=== PATIENT | female | born 1925 | race Caucasian/White ===

== ENCOUNTER 2017-08-17 10:24 | Emergency (ER) | payer MEDICARE, BC ==
[2017-08-17 12:06] LABS: Urine Bacteria Absent (Absent); Urine Bilirubin Negative (Negative); Urine Glucose Negative (Negative); Urine Nitrite Negative (Negative)
[2017-08-17 12:06] LABS: Hematocrit 37 % (35-47); Hemoglobin 12.6 g/dl (12.0-16.0); Mean Corpuscular HGB Conc 34 g/dl (31-36); Mean Corpuscular Hemoglobin 31 pg (27-31); Mean Corpuscular Volume 90 fL (80-97); Mean Platelet Volume 7 um3 (7.4-10.4); Red Blood Count 4.13 10^6/ul (4.0-5.4); Red Cell Distribution Width 13 % (10.5-15); White Blood Count 10.3 10^3/ul (3.5-10.8)
--- NOTE | 2017-08-17 12:07 | RAD ---
HISTORY: Weakness COMPARISONS: February 11, 2014 TECHNIQUE: Multiple contiguous axial CT scans were obtained of the head without intravenous contrast. FINDINGS: HEMORRHAGE/INFARCT: There is no hemorrhage or acute infarct. MASSES/SHIFT: There is no mass or shift. EXTRA-AXIAL SPACES: There are no extra-axial fluid collections. SULCI AND VENTRICLES: The sulci and ventricles are normal in size and position for the patient's stated age. CEREBRUM: There is hypoattenuation of the periventricular and subcortical white matter. BRAINSTEM: There are no focal parenchymal abnormalities. CEREBELLUM: There are no focal parenchymal abnormalities. VESSELS: The vessels are grossly normal. PARANASAL SINUSES: The paranasal sinuses are clear. ORBITS: The orbits are unremarkable. BONES AND SOFT TISSUE: No bone or soft tissue abnormalities are noted. OTHER: None IMPRESSION: NO ACUTE INTRACRANIAL PATHOLOGY. CHRONIC SMALL VESSEL ISCHEMIC CHANGES.
--- NOTE | 2017-08-17 12:18 | RAD ---
HISTORY: Weakness COMPARISONS: February 11, 2014 VIEWS: 4: Frontal dual-energy and lateral views of the chest. FINDINGS: CARDIOMEDIASTINAL SILHOUETTE: The cardiomediastinal silhouette is normal. NICOLE: The nicole are normal. PLEURA: The costophrenic angles are sharp. No pleural abnormalities are noted. LUNG PARENCHYMA: The lungs are clear. ABDOMEN: The upper abdomen is clear. There is no subphrenic gas. BONES AND SOFT TISSUES: No bone or soft tissue abnormalities are noted. OTHER: None. IMPRESSION: NO ACTIVE CARDIOPULMONARY DISEASE.
[2017-08-17 12:23] LABS: Albumin 3.4 g/dL (3.2-5.2); BUN/Creatinine Ratio 22.4 (8-20); Calcium 9.2 mg/dL (8.6-10.3); Globulin 3.3 g/dL (2-4); HDL Cholesterol 40.8 mg/dL; Potassium 3.9 mmol/L (3.5-5.0); Total Bilirubin 0.4 mg/dL (0.2-1.0); Total Protein 6.7 g/dL (6.4-8.9)
--- NOTE | 2017-08-17 15:23 | RAD ---
HISTORY: Weakness, double vision, dizziness COMPARISONS: Head CT dated August 17, 2017, MRI dated March 23 2007 TECHNIQUE: The following sequences were obtained of the head: Sagittal T1-weighted images, axial T2-weighted images, axial FLAIR images, axial susceptibility weighted images, axial T1-weighted images. Additionally, axial diffusion-weighted images were obtained with calculated apparent diffusion coefficients. FINDINGS: The study is limited by patient motion artifact. HEMORRHAGE/INFARCT: There is no hemorrhage or acute infarct. MASSES/SHIFT: There is no mass or shift. EXTRA-AXIAL SPACES/MENINGES: There are no extra-axial fluid collections. SULCI AND VENTRICLES: There is diffuse and proportional enlargement of the sulci and ventricles. CEREBRUM: There are multiple scattered and confluent foci of elevated T2/FLAIR signal within the periventricular and subcortical white matter. This is progressed compared to 2006. BRAINSTEM: There are no focal parenchymal abnormalities. CEREBELLUM: There are no focal parenchymal abnormalities. The cerebellar tonsils are normal in size and position. SELLA: The sella is normal. PINEAL: The pineal region is clear. CP ANGLE/TEMPORAL BONES: The labyrinthine structures are grossly normal. VESSELS: Normal flow-voids are noted within the visualized vertebral vasculature. DIFFUSION ABNORMALITIES: There are no diffusion abnormalities. PARANASAL SINUSES/MASTOIDS: The paranasal sinuses are clear. ORBITS: The orbits are unremarkable. BONES AND SOFT TISSUE: No bone or soft tissue abnormalities are noted. OTHER: None IMPRESSION: DIFFUSE INVOLUTIONAL CHANGE WITH DIFFUSELY ELEVATED T2/FLAIR SIGNAL IN THE PERIVENTRICULAR AND SUBCORTICAL WHITE MATTER, NONSPECIFIC, BUT SUGGESTIVE OF CHRONIC SMALL VESSEL ISCHEMIC CHANGE.
[2017-08-17 16:05] VITALS: BP 152/59
--- NOTE | 2017-08-18 08:41 | ED ---
Zen Clay Angela, scribed for Loc Dubon MD on 08/17/17 at 1135 . Neurological HPI - HPI Summary HPI Summary: This pt is a 89 y/o female accompanied by daughter and son presenting to [facility] c /o diplopia and numbness and tingling in left hand that began yesterday. Daughter reports about 10 days ago, the pt had a cold virus and within 1-2 days she got conjunctivitis on right eye. Pt was prescribed erythomycin ointment and it has now resolved. Pt presents to the ED now with diplopia, numbness/tingling in left hand, and unsteady gait since yesterday. Daughter notes the pt reported to her that she had "passed out" at home this morning, unwitnessed. There are no alleviating or aggravating factors. Pt denies headache, chest pain, SOB, palpitation, nausea and vomiting. - History of Current Complaint Chief Complaint: EDDizziness Stated Complaint: DOUBLE VISION/OFF BALANCE Time Seen by Provider: 08/17/17 11:17 Hx Obtained From: Patient Onset/Duration: Started days ago - since yesterday, Still Present Timing: Constant Pain Intensity: 0 Character: Numbness/Tingling - in left hand, Visual Changes - diplopia Syncope Context: Unwitnessed Aggravating: Nothing Alleviating: Nothing Associated Signs and Symptoms: Positive: Unsteady Gait, Visual Changes - diplopia, Numbness - in left hand. Negative: Headache, Nausea/Vomiting, Chest Pain, Shortness of Breath, Palpitations - Allergy/Home Medications Allergies/Adverse Reactions: Allergies Allergy/AdvReac Type Severity Reaction Status Date / Time Amoxicillin Allergy Unknown Unknown Verified 02/11/14 09:48 Reaction Details Cephalosporins Allergy Unknown Unknown Verified 02/11/14 09:48 Reaction Details PMH/Surg Hx/FS Hx/Imm Hx Endocrine/Hematology History: Reports: Hx Diabetes - BORDERLINE PER PT, Other Endocrine/Hematological Disorders - HYPERLIPIDEMIA Denies: Hx Anticoagulant Therapy, Hx Blood Disorders Cardiovascular History: Denies: Hx Hypertension, Hx Myocardial Infarction, Hx Peripheral Vascular Disease Respiratory History: Denies: Hx Chronic Obstructive Pulmonary Disease (COPD) History: Denies: Hx Dialysis Musculoskeletal History: Reports: Hx Osteoporosis Denies: Hx Back Problems Sensory History: Reports: Hx Contacts or Glasses Opthamlomology History: Reports: Hx Contacts or Glasses Neurological History: Reports: Hx Dementia - "memory issues" Denies: Hx Seizures Psychiatric History: Reports: Hx Depression - Surgical History Surgery Procedure, Year, and Place: HYSTERECTOMY, RIGHT KNEE SX, LEFT EYE PHACOEMULSIFICATION Infectious Disease History: No Infectious Disease History: Denies: Hx of Known/Suspected MRSA, Traveled Outside the [place] in Last 30 Days - Family History Known Family History: Positive: Cardiac Disease - sister w/ bypass surgery, cerebral hemorrhage; father CVA - Social History Alcohol Use: None Substance Use Type: Reports: None Smoking Status (MU): Never Smoked Tobacco Have You Smoked in the Last Year: No Review of Systems Negative: Fever, Chills Positive: Diplopia Negative: Palpitations, Chest Pain Negative: Shortness Of Breath Negative: Vomiting, Nausea Neurological: Other - unsteady gait Positive: Paresthesia - in left hand, Numbness - in left hand, Syncope - today. Negative: Headache All Other Systems Reviewed And Are Negative: Yes Physical Exam - Summary Physical Exam Summary: VITAL SIGNS: Reviewed. GENERAL: Patient is an elderly female who is lying comfortable in the stretcher in no acute distress. Patient is not in any acute respiratory distress. HEAD AND FACE: No signs of trauma. No ecchymosis, hematomas or skull depressions. No sinus tenderness. EYES: PERRLA, EOMI x 2, No injected conjunctiva, no nystagmus. EARS: Hearing grossly intact. Ear canals and tympanic membranes are within normal limits. MOUTH: Oropharynx within normal limits. NECK: Supple, trachea is midline, no adenopathy, no JVD, no carotid bruit, no c- spine tenderness, neck with full ROM. CHEST: Symmetric, no tenderness at palpation LUNGS: Clear to auscultation bilaterally. No wheezing or crackles. CVS: Regular rate and rhythm, S1 and S2 present, no murmurs or gallops appreciated. ABDOMEN: Soft, non-tender. No signs of distention. No rebound no guarding, and no masses palpated. Bowel sounds are normal. EXTREMITIES: FROM in all major joints, no edema, no cyanosis or clubbing. NEURO: Alert and oriented x 3. No acute neurological deficits. Speech is normal and follows commands. When trying to ambulate the pt is tilting to the left. SKIN: Dry and warm GCS: 15 Triage Information Reviewed: Yes Vital Signs On Initial Exam: Initial Vitals Temp Pulse Resp BP Pulse Ox 97.9 F 100 20 155/69 94 08/17/17 10:26 08/17/17 10:26 08/17/17 10:26 08/17/17 10:26 08/17/17 10:26 Vital Signs Reviewed: Yes - Bosler Coma Scale Coma Scale Total: 15 Diagnostics - Vital Signs Vital Signs Temp Pulse Resp BP Pulse Ox 08/17/17 10:26 97.9 F 100 20 155/69 94 - Laboratory Result Diagrams: 08/17/17 11:46 08/17/17 11:46 Lab Statement: Any lab studies that have been ordered have been reviewed, and results considered in the medical decision making process. - Radiology Chest XR Xray Interpretation: No Acute Changes - IMPRESSION: No active cardiopulmonary disease. ED physician has reviewed this radiology report and agrees. Radiology Interpretation Completed By: Radiologist - CT Brain CT CT Interpretation: No Acute Changes - IMPRESSION: No acute intracranial pathology. Chronic small vessel ischemic changes. ED physician has reviewed this radiology report and agrees. CT Interpretation Completed By: Radiologist - EKG 1258 Cardiac Rate: NL EKG Rhythm: Sinus Rhythm - at 67 bpm EKG Interpretation: No ST elevation EKG Comparison: No Significant Change - similar to previous EKG on 02/11/14. - Additional Comments Diagnostic Additional Comments: MRI Brain, per radiologist: IMPRESSION: Diffuse involutional change with diffusely elevated T2/flair signal in the periventricular and subcortical white matter, nonspecific, but suggestive of chronic small vessel ischemic change. ED physician has reviewed this radiology report and agrees. Re-Evaluation - Re-Evaluation First Eval Re-Evaluation Time: 15:50 Comment: I discussed the CT brain and brain MRI results with the pt. Course/Dx - Course Assessment/Plan: This pt is a 89 y/o female accompanied by daughter and son presenting to [facility] c/o diplopia and numbness and tingling in left hand that began yesterday. Daughter reports about 10 days ago, the pt had a cold virus and within 1-2 days she got conjunctivitis on right eye. Pt was prescribed erythomycin ointment and it has now resolved. Pt presents to the ED now with diplopia, numbness/tingling in left hand, and unsteady gait since yesterday. Daughter notes the pt reported to her that she had "passed out" at home this morning, unwitnessed. There are no alleviating or aggravating factors. Pt denies headache, chest pain, SOB, palpitation, nausea and vomiting. Test results without any significant abnormalities except for lactic of 3.4. Chest XR shows no active cardiopulmonary disease. Head CT shows no acute intracranial pathology. Chronic small vessel ischemic changes. I discussed the case with Dr. talavera, who recommends to do an MRI to rule out a CVA. MRI was done and it reveals diffuse involutional change with diffusely elevated T2/flair signal in the periventricular and subcortical white matter, nonspecific, but suggestive of chronic small vessel ischemic change. Since the MRI is negative, I discussed the findings with Dr. Talavera, who recommends the pt to be discharged home and work the pt up as an outpatient. Pt will be discharged home with family members and with follow up from Dr. Talavera. Pt is hemodynamically stable, alert and oriented x3. - Diagnoses Provider Diagnoses: Weakness, Dizziness Discharge - Discharge Plan Condition: Stable Disposition: HOME Patient Education Materials: Weakness (ED), Dizziness (ED) Referrals: [facility] [Outside] Amando Talavera MD [Medical Doctor] - Additional Instructions: Please follow up with Dr. Talavera, neurologist. Follow up with your primary care provider as well. RETURN TO THE ED FOR ANY WORSENING SYMPTOMS. The documentation as recorded by the Zen fletcher Angela accurately reflects the service I personally performed and the decisions made by me, Loc Dubon MD.
--- NOTE | 2017-08-19 09:05 | PN ---
Progress Note - Progress Note Date of Service: 08/17/17 Note: patient evaluated for weakness and dizziness. no sign of UTI or complaints. urine culture results show 25-50,000 of group b strep. not sufficient enough amount requiring treatment at this time. no further action required.
== END 2017-08-17 16:17 | disposition home or self-care (01) ==
LOC: ED 10:24
DX: R53.1 Weakness (principal); R42 Dizziness and giddiness; R73.03 Prediabetes; E78.5 Hyperlipidemia, unspecified; M81.0 Age-related osteoporosis without current pathological fracture; F03.90 Unspecified dementia, unspecified severity, without behavioral disturbance, psychotic disturbance, mood disturbance, and anxiety; F32.9 Major depressive disorder, single episode, unspecified
CPT/HCPCS: 36415; 70450; 70551; 71020; 80053; 80061; 81003; 81015; 83605; 84484; 85025; 85610; 85730; 87077; 87086; 93005; 99282

== ENCOUNTER 2017-08-19 11:52 | Inpatient (IN) | payer MEDICARE, BC ==
[2017-08-19 12:51] LABS: Hematocrit 39 % (35-47); Mean Corpuscular HGB Conc 33 g/dl (31-36); Mean Corpuscular Hemoglobin 30 pg (27-31); Mean Corpuscular Volume 90 fL (80-97); Mean Platelet Volume 7 um3 (7.4-10.4); Red Blood Count 4.36 10^6/ul (4.0-5.4); Red Cell Distribution Width 13 % (10.5-15)
[2017-08-19 13:09] LABS: Albumin 3.5 g/dL (3.2-5.2); BUN/Creatinine Ratio 18.5 (8-20); C Reactive Protein 7.87 mg/L (< 5.00); EGFR African American 85.6 (>60); EGFR Non-African American 66.6 (>60); Globulin 3.3 g/dL (2-4); Potassium 3.9 mmol/L (3.5-5.0); Total Bilirubin 0.5 mg/dL (0.2-1.0); Total Protein 6.8 g/dL (6.4-8.9)
[2017-08-19] MEDS ORDERED: Levofloxacin 750 MG IVPREMIX(* 750 MG/150 ML BAG IVPB ONE (13:25)
[2017-08-19 14:00] LABS: Urine Bacteria Absent (Absent); Urine Bilirubin Negative (Negative); Urine Glucose Negative (Negative); Urine Nitrite Negative (Negative)
--- NOTE | 2017-08-19 14:04 | ED ---
Neurological HPI - HPI Summary HPI Summary: Ms. Cabrera was here two days ago and had a thorough work up for a possible CVA. Subsequently she went home and then last evening she was too weak in general to get up and slid into the bedroom and slept on the floor. She has no focal complaint or C/O pain. - History of Current Complaint Chief Complaint: EDNeurologicalDeficit Stated Complaint: LEFT SIDE WEEKNESS Time Seen by Provider: 08/19/17 12:01 Pain Intensity: 0 - Allergy/Home Medications Allergies/Adverse Reactions: Allergies Allergy/AdvReac Type Severity Reaction Status Date / Time Amoxicillin Allergy Unknown Unknown Verified 02/11/14 09:48 Reaction Details Cephalosporins Allergy Unknown Unknown Verified 02/11/14 09:48 Reaction Details PMH/Surg Hx/FS Hx/Imm Hx Endocrine/Hematology History: Reports: Hx Diabetes - BORDERLINE PER PT, Other Endocrine/Hematological Disorders - HYPERLIPIDEMIA Denies: Hx Anticoagulant Therapy, Hx Blood Disorders Cardiovascular History: Denies: Hx Hypertension, Hx Myocardial Infarction, Hx Pacemaker/ICD, Hx Peripheral Vascular Disease Respiratory History: Denies: Hx Chronic Obstructive Pulmonary Disease (COPD) History: Denies: Hx Dialysis Musculoskeletal History: Reports: Hx Osteoporosis Denies: Hx Back Problems Sensory History: Reports: Hx Contacts or Glasses Denies: Hx Hearing Aid Opthamlomology History: Reports: Hx Contacts or Glasses Neurological History: Reports: Hx Dementia - "memory issues" Denies: Hx Seizures Psychiatric History: Reports: Hx Depression, Hx Panic Disorder - anxiety - Surgical History Surgery Procedure, Year, and Place: HYSTERECTOMY, RIGHT KNEE SX, LEFT EYE PHACOEMULSIFICATION Infectious Disease History: No Infectious Disease History: Denies: Hx of Known/Suspected MRSA, Traveled Outside the [place] in Last 30 Days - Family History Known Family History: Positive: Cardiac Disease - sister w/ bypass surgery, cerebral hemorrhage; father CVA - Social History Alcohol Use: None Substance Use Type: Reports: None Smoking Status (MU): Never Smoked Tobacco Have You Smoked in the Last Year: No Review of Systems Positive: Fatigue Positive: Weakness All Other Systems Reviewed And Are Negative: Yes Physical Exam Triage Information Reviewed: Yes Vital Signs On Initial Exam: Initial Vitals Temp Pulse Resp BP Pulse Ox 97.5 F 80 20 137/61 96 08/19/17 11:56 08/19/17 11:56 08/19/17 11:56 08/19/17 11:56 08/19/17 11:56 Vital Signs Reviewed: Yes Appearance: Positive: Well-Appearing Eyes: Positive: Normal ENT: Positive: Normal ENT inspection Neck: Positive: Supple Respiratory/Lung Sounds: Positive: Clear to Auscultation Cardiovascular: Positive: Normal Abdomen Description: Positive: Nontender Bowel Sounds: Positive: Present Neurological: Positive: Normal Psychiatric: Positive: Normal - Bernard Coma Scale Coma Scale Total: 15 Diagnostics - Vital Signs Vital Signs Temp Pulse Resp BP Pulse Ox 08/19/17 11:56 97.5 F 80 20 137/61 96 - Laboratory Lab Results: Lab Results 08/19/17 08/19/17 08/19/17 Range/Units 12:42 12:42 12:42 WBC 15.0 H (3.5-10.8) 10^3/ul RBC 4.36 (4.0-5.4) 10^6/ul Hgb 13.0 (12.0-16.0) g/dl Hct 39 (35-47) % MCV 90 (80-97) fL MCH 30 (27-31) pg MCHC 33 (31-36) g/dl RDW 13 (10.5-15) % Plt Count 308 (150-450) 10^3/ul MPV 7 L (7.4-10.4) um3 Neut % (Auto) 79.4 (38-83) % Lymph % (Auto) 13.4 L (25-47) % Gaston % (Auto) 6.2 (1-9) % Eos % (Auto) 0.2 (0-6) % Baso % (Auto) 0.8 (0-2) % Absolute Neuts (auto) 11.9 H (1.5-7.7) 10^3/ul Absolute Lymphs (auto) 2.0 (1.0-4.8) 10^3/ul Absolute Monos (auto) 0.9 H (0-0.8) 10^3/ul Absolute Eos (auto) 0 (0-0.6) 10^3/ul Absolute Basos (auto) 0.1 (0-0.2) 10^3/ul Absolute Nucleated RBC 0.01 10^3/ul Nucleated RBC % 0 INR (Anticoag Therapy) 0.94 (0.89-1.11) Sodium 134 (133-145) mmol/L Potassium 3.9 (3.5-5.0) mmol/L Chloride 100 L (101-111) mmol/L Carbon Dioxide 26 (22-32) mmol/L Anion Gap 8 (2-11) mmol/L BUN 15 (6-24) mg/dL Creatinine 0.81 (0.51-0.95) mg/dL Est GFR ( Amer) 85.6 (>60) Est GFR (Non-Af Amer) 66.6 (>60) BUN/Creatinine Ratio 18.5 (8-20) Glucose 154 H (70-100) mg/dL Lactic Acid (0.5-2.0) mmol/L Calcium 9.0 (8.6-10.3) mg/dL Magnesium 2.0 (1.9-2.7) mg/dL Total Bilirubin 0.50 (0.2-1.0) mg/dL AST 28 (13-39) U/L ALT 17 (7-52) U/L Alkaline Phosphatase 62 (34-104) U/L Troponin I 0.00 (<0.04) ng/mL C-Reactive Protein 7.87 H (< 5.00) mg/L Total Protein 6.8 (6.4-8.9) g/dL Albumin 3.5 (3.2-5.2) g/dL Globulin 3.3 (2-4) g/dL Albumin/Globulin Ratio 1.1 (1-3) TSH Pending 08/19/17 Range/Units 12:42 WBC (3.5-10.8) 10^3/ul RBC (4.0-5.4) 10^6/ul Hgb (12.0-16.0) g/dl Hct (35-47) % MCV (80-97) fL MCH (27-31) pg MCHC (31-36) g/dl RDW (10.5-15) % Plt Count (150-450) 10^3/ul MPV (7.4-10.4) um3 Neut % (Auto) (38-83) % Lymph % (Auto) (25-47) % Gaston % (Auto) (1-9) % Eos % (Auto) (0-6) % Baso % (Auto) (0-2) % Absolute Neuts (auto) (1.5-7.7) 10^3/ul Absolute Lymphs (auto) (1.0-4.8) 10^3/ul Absolute Monos (auto) (0-0.8) 10^3/ul Absolute Eos (auto) (0-0.6) 10^3/ul Absolute Basos (auto) (0-0.2) 10^3/ul Absolute Nucleated RBC 10^3/ul Nucleated RBC % INR (Anticoag Therapy) (0.89-1.11) Sodium (133-145) mmol/L Potassium (3.5-5.0) mmol/L Chloride (101-111) mmol/L Carbon Dioxide (22-32) mmol/L Anion Gap (2-11) mmol/L BUN (6-24) mg/dL Creatinine (0.51-0.95) mg/dL Est GFR ( Amer) (>60) Est GFR (Non-Af Amer) (>60) BUN/Creatinine Ratio (8-20) Glucose (70-100) mg/dL Lactic Acid 3.3 H* (0.5-2.0) mmol/L Calcium (8.6-10.3) mg/dL Magnesium (1.9-2.7) mg/dL Total Bilirubin (0.2-1.0) mg/dL AST (13-39) U/L ALT (7-52) U/L Alkaline Phosphatase (34-104) U/L Troponin I (<0.04) ng/mL C-Reactive Protein (< 5.00) mg/L Total Protein (6.4-8.9) g/dL Albumin (3.2-5.2) g/dL Globulin (2-4) g/dL Albumin/Globulin Ratio (1-3) TSH Result Diagrams: 08/19/17 12:42 08/19/17 12:42 Lab Statement: Any lab studies that have been ordered have been reviewed, and results considered in the medical decision making process. NIH Scale - NIH Scale Level of Consciousness: Alert/Keenly Responsive Ask Patient the Month and His/Her Age: Both Correct Ask Pt to Open/Close Eyes and Portfolio Management Marketing/Release Non-Paretic Hand: Both Correctly Best Gaze (Only Horizontal Eye Movement): Normal Visual Field Testing: No Visual Loss Facial Paresis-Pt to Smile & Close Eyes or Grimace Symmetry: Normal/Symmetrical Motor Function - Right Arm: No Drift-Holds 10 Seconds Motor Function - Left Arm: No Drift-Holds 10 Seconds Motor Function - Right Leg: No Drift-Holds 10 Seconds Motor Function - Left Leg: No Drift-Holds 10 Seconds Limb Ataxia-Must be out of Proportion to Weakness Present: Absent Sensory (Use Pinprick to Test Arms/Legs/Trunk/Face): Normal Best Language (Describe Picture, Name Items): No Aphasia Dysarthria (Read Several Words): Normal Extinction and Inattention: No Abnormality Total Score: 0 Course/Dx - Course Course Of Treatment: Ms. Cabrera presented again. She is too weak to take care of herself at home (she lives alone). She was found to have a leukocytocis and a lactic acidosis. She was treated with fluids and antibiotics and is being admitted to the hospital. - Diagnoses Provider Diagnoses: Weakness, Lactic acidosis Discharge - Discharge Plan Condition: Stable Disposition: ADMITTED TO [facility] Referrals: Michelle Lilly MD [Primary Care Provider] -
[2017-08-19 14:15] LABS: TSH (Thyroid Stimulating Horm) 2.78 mcIU/mL (0.34-5.60)
[2017-08-19] MEDS ORDERED: NS 0.9% 1000 ML* 1,000 ML IV ONE (14:18)
[2017-08-19] MEDS ORDERED: Ondansetron INJ* 2 MG/ML VIAL IV PRN (14:20)
[2017-08-19] MEDS: NS 0.9% 1000 ML* 1,000 ML IV SCH (16:14)
--- NOTE | 2017-08-19 16:58 | HP ---
CC: Dr. Lilly * [facility] MEDICINE HISTORY AND PHYSICAL: DATE OF ADMISSION: 08/19/17 PRIMARY CARE PHYSICIAN: Dr. Lilly ATTENDING PHYSICIAN: Carmella Harmon MD * (dictation provided by Harika Bragg NP ) CHIEF COMPLAINT: Weakness. HISTORY OF PRESENT ILLNESS: Ms. Cabrera is an 89-year-old female with a past medical history of dementia and depression who lives alone and reports to the hospital today with concern for weakness. Ms. Cabrera was seen in our emergency room on 08/17/17 with complaint of diplopia and left arm numbness and tingling. At that time, she had a CT brain and an MRI of the brain, which showed no evidence of stroke or other acute abnormality. It did show some significant involutional change. At that time, her white blood cell count was normal. She did have 1+ leuk esterase in the urine, but no evidence of bacteria. In addition to this, about a week ago, the patient developed right- sided conjunctivitis for which she was treated with what the family thinks is tobramycin. She developed diplopia about 10 days after taking this medication, but this resolved when she stopped the medication. Today, the family was at the home and the patient was too weak to walk and therefore EMS was called and the patient was brought back to the hospital. The patient denies any complaint right now. She had reported being dizzy or lightheaded earlier in the day to her family. She does have some short-term memory loss, so details are limited. In the emergency room, Ms. Cabrera is found to have a white blood cell count of 15.0. Her urinalysis today shows no leuk esterase or nitrite; however, her urine culture from 08/17/17 is now growing group B strep. She denies any dysuria, but does voice concern for frequency and also note that her urine is quite malodorous subjectively today. PAST MEDICAL HISTORY: 1. Depression. 2. Dyslipidemia. 3. Dementia. 4. Diet controlled diabetes. MEDICATIONS: 1. Aricept 5 mg p.o. daily. 2. Citalopram 10 mg p.o. daily. 3. Atorvastatin 10 mg p.o. daily. ALLERGIES: AMOXICILLIN and CEPHALOSPORINS. FAMILY HISTORY: Was unable to offer information about family history today. SOCIAL HISTORY: No report of alcohol, tobacco, or drug use. 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 She has 3 children and she states that her son, Anirudh, is the healthcare proxy. REVIEW OF SYSTEMS: General: No fevers or weight loss. Cardiac: No chest pain or edema. Respiratory: No cough, hemoptysis, or shortness of breath. GI: No nausea, vomiting, diarrhea. : Positive for frequency. No dysuria. Musculoskeletal: No arthralgias, myalgias. Skin: No rashes, lesions. Psych: Positive for depression. ENT: No dysphagia. Eyes: Positive for diplopia that is now resolved. Neuro: Positive for left arm numbness and tingling. PHYSICAL EXAMINATION GENERAL: Ms. Cabrera is lying in the bed. She is in no acute distress. The family is at bedside. VITAL SIGNS: Temperature 97.5, pulse rate 80, respiratory rate 20, O2 saturation 96% on room air, blood pressure 137/61. LUNGS: Clear to auscultation bilaterally with no accessory muscle use and good aeration. HEART: S1, S2. No murmur, rub, or gallop and regular. ABDOMEN: Soft, nontender with bowel sounds positive x4. EXTREMITIES: No cyanosis. No edema. NEURO: She is alert. She is oriented x3. She is a little forgetful about details. She moves all 4 extremities strongly with +5/5 strength. There is no facial asymmetry. Her pupils are equal and reactive. She does show evidence of nystagmus most prominently noted when she looks to the left. She is asymptomatic and denies dizziness when lying flat, when sitting up, or when extraocular movements are tested. SKIN: Intact. LABORATORY DATA/DIAGNOSTIC STUDIES: WBC 15.0, hemoglobin 13.0, hematocrit 39, platelet count 308. INR 0.94. Sodium 134, potassium 3.9, chloride 100, serum bicarbonate 26, BUN 15, creatinine 0.81, glucose 154. Lactic acid 3.3. CRP 7.87. Urine shows no leuk esterase or nitrites. Urine culture from 08/17/17 shows group B strep. CT brain from 08/17/17 is read as follows, "no acute intracranial pathology, chronic small vessel ischemic changes." Brain MRI from 08/17/17 shows "diffuse involutional change with diffusely elevated T2 flair signal in the periventricular and subcortical white matter, not specific, but suggestive of chronic small vessel ischemic change." ASSESSMENT: Ms. Cabrera is an 89-year-old female with a past medical history of dementia and depression who presents to the hospital today with concern for ongoing left arm numbness and tingling, now associated with generalized weakness and inability to ambulate. She has been found to have concern for a possible urinary tract infection with group B strep growing from urine culture on 08/17/17 as well as symptoms of frequency. Our plans are for observation in the hospital for the followin. Weakness: The patient has had a negative MRI of the brain on 08/17/17. On exam, I do not appreciate any focalized neurological findings and find that she has 5/5 strength on exam while in bed. I suspect that her weakness is perhaps secondary to urinary tract infection. Plan for q.4 hour neuro checks. 2. Urinary tract infection. Plan to treat with Bactrim based on the patient's allergies to amoxicillin and cephalosporins. The patient may transiently meet sepsis criteria today with documentation of a slightly elevated respiratory rate and her white blood cell count of 15. I see her lactic acid is elevated to 3.3. Plan for IV fluids now and to recheck in 4 hours. 3. Dementia. Continue Aricept. 4. Depression. Continue escitalopram. 5. Left arm numbness and tingling. This has been ongoing for several days now. I suspect it might be related to degenerative disk disease cervically. I do not see any indication or warning signs that would indicate that that should be imaged inpatient. 6. Code status is full code. 7. Disposition to medical floor. TIME SPENT: Approximately 60 minutes were spent on the admission of this patient, more than half of the time was spent with the patient at the bedside reviewing the events with her and the family leading up to this admission, performing the physical examination and reviewing the plan of care. HARIKA BRAGG, SAL[place] [id number]/[facility] #: [id number] ARMEN
[2017-08-19] MEDS: Heparin VIAL(*) 5000 UNITS/ML VIAL (FIVE THOUSAND) SUBCUT SCH (21:22)
[2017-08-19] MEDS: Sulfamethox/Trimethoprim DS 800/160* TAB PO SCH (21:22)
[2017-08-20] MEDS: Heparin VIAL(*) 5000 UNITS/ML VIAL (FIVE THOUSAND) SUBCUT SCH ×3 (05:53→21:27)
[2017-08-20] MEDS: Omeprazole CAP* 20 MG PO SCH (05:53)
[2017-08-20] MEDS: NS 0.9% 1000 ML* 1,000 ML IV SCH (06:38)
[2017-08-20] MEDS: Sulfamethox/Trimethoprim DS 800/160* TAB PO SCH ×2 (09:07→21:27)
[2017-08-20] MEDS: Donepezil TAB* 5 MG PO SCH (09:07)
[2017-08-20] MEDS: Atorvastatin* 10 MG TAB PO SCH (09:07)
[2017-08-20] MEDS: CMC:Escitalopram (NF) 10 MG TAB PO SCH ×2 (09:07→09:10)
[2017-08-20 11:17] LABS: Hematocrit 38 % (35-47); Hemoglobin 12.5 g/dl (12.0-16.0); Mean Corpuscular HGB Conc 33 g/dl (31-36); Mean Corpuscular Hemoglobin 30 pg (27-31); Mean Corpuscular Volume 90 fL (80-97); Mean Platelet Volume 7 um3 (7.4-10.4); Red Cell Distribution Width 13 % (10.5-15); White Blood Count 11.3 10^3/ul (3.5-10.8)
--- NOTE | 2017-08-20 11:42 | PN ---
Subjective Date of Service: 08/20/17 Interval History: This is an 89 year old female that presented in the ED with a complaint of left sided weakness, unsteady gait and paresthesias to LUE. MRI was negative for acute pathology, however she was found to have elevated WBC count and elevated LA of 3.3. She was admitted for potential urosepsis. Patient is seen and examined today, denies any fever or chills, still feeling weak with bilateral paresthesias in both hands described as numbness and tingling in the fingers. Denies headache, no chest pain, no urinary burning, does state frequency and need to use a pad for incontinence. Objective Active Medications: Atorvastatin Calcium (Lipitor*) 10 mg PO DAILY [facility] Last Admin: 08/20/17 09:07 Dose: 10 mg Donepezil HCl (Aricept Tab*) 5 mg PO DAILY [facility] Last Admin: 08/20/17 09:07 Dose: 5 mg Escitalopram Oxalate (Lexapro (Nf)) 10 mg PO DAILY [facility] Last Admin: 08/20/17 09:10 Dose: Not Given Heparin Sodium (Porcine) (Heparin Vial(*)) 5,000 units SUBCUT Q8HR [facility] Last Admin: 08/20/17 05:53 Dose: 5,000 units Omeprazole (Prilosec Cap*) 20 mg PO DAILY@0600 [facility] Last Admin: 08/20/17 05:53 Dose: 20 mg Ondansetron HCl (Zofran Inj*) 4 mg IV Q6H PRN PRN Reason: NAUSEA Trimethoprim/Sulfamethoxazole (Bactrim Ds 800/160 Tab*) 1 tab PO BID [facility] Last Admin: 08/20/17 09:07 Dose: 1 tab Vital Signs 08/19/17 08/19/17 08/19/17 13:54 14:23 15:30 Temperature 98.1 F 98.1 F Pulse Rate 71 77 77 Respiratory 18 16 Rate Blood Pressure 158/63 150/67 150/67 (mmHg) O2 Sat by Pulse 97 98 98 Oximetry 08/19/17 08/19/17 08/20/17 19:43 23:32 06:05 Temperature 98.0 F 98.5 F 97.3 F Pulse Rate 83 90 74 Respiratory 20 16 16 Rate Blood Pressure 132/44 107/67 146/64 (mmHg) O2 Sat by Pulse 96 99 97 Oximetry 08/20/17 07:22 Temperature 98.2 F Pulse Rate 77 Respiratory 18 Rate Blood Pressure 149/58 (mmHg) O2 Sat by Pulse 95 Oximetry Oxygen Devices in Use Now: None Appearance: Alert, mild confusion, tremulous UE. Eyes: No Scleral Icterus, PERRLA Ears/Nose/Mouth/Throat: Mucous Membranes Moist Neck: NL Appearance and Movements; NL JVP, Trachea Midline Respiratory: Symmetrical Chest Expansion and Respiratory Effort, Clear to Auscultation Cardiovascular: NL Sounds; No Murmurs; No JVD, No Edema Abdominal: NL Sounds; No Tenderness; No Distention, No Hepatosplenomegaly Lymphatic: No Cervical Adenopathy Extremities: No Edema, No Clubbing, Cyanosis Skin: No Rash or Ulcers Neurological: - - Alert to person and place, decreased research dietitian bilat UE Nutrition: Taking PO's Result Diagrams: 08/20/17 11:05 08/19/17 12:42 Additional Lab and Data: Lab Results 08/19/17 08/19/17 08/19/17 Range/Units 12:42 12:42 12:42 WBC 15.0 H (3.5-10.8) 10^3/ul RBC 4.36 (4.0-5.4) 10^6/ul Hgb 13.0 (12.0-16.0) g/dl Hct 39 (35-47) % MCV 90 (80-97) fL MCH 30 (27-31) pg MCHC 33 (31-36) g/dl RDW 13 (10.5-15) % Plt Count 308 (150-450) 10^3/ul MPV 7 L (7.4-10.4) um3 Neut % (Auto) 79.4 (38-83) % Lymph % (Auto) 13.4 L (25-47) % Bulloch % (Auto) 6.2 (1-9) % Eos % (Auto) 0.2 (0-6) % Baso % (Auto) 0.8 (0-2) % Absolute Neuts (auto) 11.9 H (1.5-7.7) 10^3/ul Absolute Lymphs (auto) 2.0 (1.0-4.8) 10^3/ul Absolute Monos (auto) 0.9 H (0-0.8) 10^3/ul Absolute Eos (auto) 0 (0-0.6) 10^3/ul Absolute Basos (auto) 0.1 (0-0.2) 10^3/ul Absolute Nucleated RBC 0.01 10^3/ul Nucleated RBC % 0 INR (Anticoag Therapy) 0.94 (0.89-1.11) Sodium 134 (133-145) mmol/L Potassium 3.9 (3.5-5.0) mmol/L Chloride 100 L (101-111) mmol/L Carbon Dioxide 26 (22-32) mmol/L Anion Gap 8 (2-11) mmol/L BUN 15 (6-24) mg/dL Creatinine 0.81 (0.51-0.95) mg/dL Est GFR ( Amer) 85.6 (>60) Est GFR (Non-Af Amer) 66.6 (>60) BUN/Creatinine Ratio 18.5 (8-20) Glucose 154 H (70-100) mg/dL Lactic Acid (0.5-2.0) mmol/L Calcium 9.0 (8.6-10.3) mg/dL Magnesium 2.0 (1.9-2.7) mg/dL Total Bilirubin 0.50 (0.2-1.0) mg/dL AST 28 (13-39) U/L ALT 17 (7-52) U/L Alkaline Phosphatase 62 (34-104) U/L Troponin I 0.00 (<0.04) ng/mL C-Reactive Protein 7.87 H (< 5.00) mg/L Total Protein 6.8 (6.4-8.9) g/dL Albumin 3.5 (3.2-5.2) g/dL Globulin 3.3 (2-4) g/dL Albumin/Globulin Ratio 1.1 (1-3) TSH Pending 08/19/17 Range/Units 12:42 WBC (3.5-10.8) 10^3/ul RBC (4.0-5.4) 10^6/ul Hgb (12.0-16.0) g/dl Hct (35-47) % MCV (80-97) fL MCH (27-31) pg MCHC (31-36) g/dl RDW (10.5-15) % Plt Count (150-450) 10^3/ul MPV (7.4-10.4) um3 Neut % (Auto) (38-83) % Lymph % (Auto) (25-47) % Bulloch % (Auto) (1-9) % Eos % (Auto) (0-6) % Baso % (Auto) (0-2) % Absolute Neuts (auto) (1.5-7.7) 10^3/ul Absolute Lymphs (auto) (1.0-4.8) 10^3/ul Absolute Monos (auto) (0-0.8) 10^3/ul Absolute Eos (auto) (0-0.6) 10^3/ul Absolute Basos (auto) (0-0.2) 10^3/ul Absolute Nucleated RBC 10^3/ul Nucleated RBC % INR (Anticoag Therapy) (0.89-1.11) Sodium (133-145) mmol/L Potassium (3.5-5.0) mmol/L Chloride (101-111) mmol/L Carbon Dioxide (22-32) mmol/L Anion Gap (2-11) mmol/L BUN (6-24) mg/dL Creatinine (0.51-0.95) mg/dL Est GFR ( Amer) (>60) Est GFR (Non-Af Amer) (>60) BUN/Creatinine Ratio (8-20) Glucose (70-100) mg/dL Lactic Acid 3.3 H* (0.5-2.0) mmol/L Calcium (8.6-10.3) mg/dL Magnesium (1.9-2.7) mg/dL Total Bilirubin (0.2-1.0) mg/dL AST (13-39) U/L ALT (7-52) U/L Alkaline Phosphatase (34-104) U/L Troponin I (<0.04) ng/mL C-Reactive Protein (< 5.00) mg/L Total Protein (6.4-8.9) g/dL Albumin (3.2-5.2) g/dL Globulin (2-4) g/dL Albumin/Globulin Ratio (1-3) TSH Microbiology and Other Data: Group B strep on urine culture Diagnostic Imaging: Chronic small vessel ischemic changes on MRI brain. No acute patho noted. EKG Data: RSR, no ectopy Assess/Plan/Problems-Billing Assessment: - Patient Problems (1) Group B streptococcal infection Code(s): A49.1 - STREPTOCOCCAL INFECTION, UNSPECIFIED SITE SNOMED Code(s): 667179916 Comment: - Had hx of e.Coli in urine prior - Continue to follow urine cx - PCN allergic - Maintain on bactrim for now (2) UTI (urinary tract infection), bacterial Code(s): N39.0 - URINARY TRACT INFECTION, SITE NOT SPECIFIED; A49.9 - BACTERIAL INFECTION, UNSPECIFIED SNOMED Code(s): 087247353 Comment: - DC fluids for now - Re-draw lactid acid - Monitor WBCs and trend temps - Continue atbx (3) Paresthesias with subjective weakness Code(s): R20.2 - PARESTHESIA OF SKIN; R53.1 - WEAKNESS SNOMED Code(s): 54419407 Comment: - Not likely CVA, as symptoms are bilateral in UE - May consider cervical radiculopathy/spinal stenosis - Continue supportive care (4) Dementia Code(s): F03.90 - UNSPECIFIED DEMENTIA WITHOUT BEHAVIORAL DISTURBANCE SNOMED Code(s): 52981173 Comment: - continue donepezil (5) Depression Code(s): F32.9 - MAJOR DEPRESSIVE DISORDER, SINGLE EPISODE, UNSPECIFIED SNOMED Code(s): 10674046 Comment: - Refused lexapro this AM - Continue to monitor mood Status and Disposition: Continue to monitor closely, review LA and WBC counts, remains higher risk for sepsis. Will need to discuss with family, as patient is elderly and frail and lives by herself. Counseling and/or Coordination of Care Minutes: coordinated with case management Attending: Carmella Golria
[2017-08-21] MEDS: Heparin VIAL(*) 5000 UNITS/ML VIAL (FIVE THOUSAND) SUBCUT SCH ×3 (06:22→22:06)
[2017-08-21] MEDS: Omeprazole CAP* 20 MG PO SCH (06:22)
[2017-08-21] MEDS: CMC:Escitalopram (NF) 10 MG TAB PO SCH (09:00)
[2017-08-21] MEDS: Donepezil TAB* 5 MG PO SCH (09:00)
[2017-08-21] MEDS: Atorvastatin* 10 MG TAB PO SCH (09:00)
[2017-08-21] MEDS: Sulfamethox/Trimethoprim DS 800/160* TAB PO SCH ×2 (09:00→22:06)
--- NOTE | 2017-08-21 11:51 | PN ---
Subjective Date of Service: 08/21/17 Interval History: Patient continues to be weak. Has not been seen by PT yet today. According to nurse, has been a gilberto lift in hospital. Family at bedside. They report she was driving herself to [employer], going to water aerobics 3 wks ago. Has had 1 week progressive weakness in both legs, one fall. Patient reports bilateral hand numbness for 3 days. Denies neck weakness, head does not feel heavy. She has had double vision. Denies swallowing difficulty Family History: Unchanged from Admission Social History: Unchanged from Admission Past Medical History: Unchanged from Admission Objective Active Medications: Atorvastatin Calcium (Lipitor*) 10 mg PO DAILY [facility] Last Admin: 08/21/17 09:00 Dose: 10 mg Donepezil HCl (Aricept Tab*) 5 mg PO DAILY [facility] Last Admin: 08/21/17 09:00 Dose: 5 mg Escitalopram Oxalate (Lexapro (Nf)) 10 mg PO DAILY [facility] Last Admin: 08/21/17 09:00 Dose: 10 mg Heparin Sodium (Porcine) (Heparin Vial(*)) 5,000 units SUBCUT Q8HR [facility] Last Admin: 08/21/17 06:22 Dose: 5,000 units Omeprazole (Prilosec Cap*) 20 mg PO DAILY@0600 [facility] Last Admin: 08/21/17 06:22 Dose: 20 mg Ondansetron HCl (Zofran Inj*) 4 mg IV Q6H PRN PRN Reason: NAUSEA Trimethoprim/Sulfamethoxazole (Bactrim Ds 800/160 Tab*) 1 tab PO BID [facility] Last Admin: 08/21/17 09:00 Dose: 1 tab Vital Signs 08/20/17 08/20/17 08/20/17 15:56 20:49 23:23 Temperature 36.7 C 36.6 C 36.8 C Pulse Rate 87 93 96 Respiratory 16 16 24 Rate Blood Pressure 149/63 153/58 132/64 (mmHg) O2 Sat by Pulse 97 97 Oximetry 08/20/17 08/21/17 08/21/17 23:36 03:19 06:16 Temperature 36.8 C 36.7 C 36.6 C Pulse Rate 96 88 80 Respiratory 24 18 16 Rate Blood Pressure 132/64 106/72 147/59 (mmHg) O2 Sat by Pulse 98 100 96 Oximetry Oxygen Devices in Use Now: None Appearance: alert, talkative. Eyes: No Scleral Icterus Ears/Nose/Mouth/Throat: Clear Oropharnyx Neck: Trachea Midline, No Thyroid Enlargement, Masses Respiratory: Clear to Auscultation Cardiovascular: NL Sounds; No Murmurs; No JVD Lymphatic: No Cervical Adenopathy Extremities: No Edema Neurological: Alert and Oriented x 3, - - bilateral inability to deviate eyes laterally, mild bilat ptosis, CN II-XII otherwise intact, motor 4/5 UE symmetric , 5/5 LE symmetric, DTR absent UE, LE, no pronator drift, Legs L>R fall to bed in few seconds when elevated, eyes closed Lines/Tubes/Other Access: Clean, Dry and Intact Peripheral IV Nutrition: Taking PO's Result Diagrams: 08/20/17 11:05 08/19/17 12:42 Additional Lab and Data: Lab Results Microbiology and Other Data: Group B strep on urine culture Diagnostic Imaging: Chronic small vessel ischemic changes on MRI brain. No acute patho noted. CXR negative 08/17 Assess/Plan/Problems-Billing Assessment: 89 year old woman admitted w/ progressive weakness, one fall, over a week, with negative MRI in ER 08/17 - Patient Problems (1) Myasthenia gravis Current Visit: Yes Status: Acute Priority: High Code(s): G70.00 - MYASTHENIA GRAVIS WITHOUT (ACUTE) EXACERBATION SNOMED Code(s): 23413154 Comment: -progressive symmetric weakness concerning for MG or AIDP, MG suspected w/ symmetric opthamoplegia -discussed case w/ Dr. Ferrari, will send MUSK and AChRecAb and other tests as discussed -physical therapy to assess (2) UTI (urinary tract infection), bacterial Current Visit: Yes Status: Acute Priority: Medium Code(s): N39.0 - URINARY TRACT INFECTION, SITE NOT SPECIFIED; A49.9 - BACTERIAL INFECTION, UNSPECIFIED SNOMED Code(s): 834495896 Comment: -repeat lactate normal, no clinical sign of sepsis -WBCs and trend temps excellent - Continue bactrim for group B strep (3) DVT prophylaxis Current Visit: Yes Status: Acute Priority: Low Code(s): RLW7615 - SNOMED Code(s): 099164364 Comment: on SC heparin Status and Disposition: Needs continued hospital stay for neurological workup
--- NOTE | 2017-08-21 17:48 | CONS ---
CONSULTATION REPORT: DATE OF CONSULT: 08/21/17 PATIENT OF: Dr. Lilly and Dr. Domingo. HISTORY OF PRESENT ILLNESS: This is an 89-year-old woman, who I am asked to see for double vision and diffuse weakness. She has a history of dementia and is a poor historian. She does not know how long she has had the double vision for instance, but notes that she has it. She received an MRI scan a week ago for a diagnosis of double vision and weakness, so it has been going on at least that long, but my sense is it may have been going on for longer. She presented on the with generalized weakness and was admitted that point and was thought that possibly has an infection is the cause of her weakness and was admitted. Dr. Domingo noted double vision today and asked me to consult on her for possible myasthenia. She has no swallowing problems. No shortness of breath , but has complaints of arm weakness where she tires more quickly and bilateral leg weakness. Of note, there has been some left arm tingling and numbness. PAST MEDICAL HISTORY: Significant for dementia, dyslipidemia, depression, and diet controlled diabetes. MEDICATIONS: At home include: 1. Aricept 5 mg daily. 2. Citalopram 10 mg daily. 3. Atorvastatin 10 mg daily. ALLERGIES: She is allergic to AMOXICILLIN and CEPHALOSPORINS. FAMILY HISTORY: Not able to be obtained. SOCIAL HISTORY: She does not smoke, drink, or use drugs. 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 REVIEW OF SYSTEMS: Negative in all 14 spheres other than the HPI. From what I gathered from both the hospitalist notes and when she was in the ER, the double vision appears to fluctuate at times. She does not complained of it. PHYSICAL EXAM: On exam, temperature 97.9, pulse 74, respirations 16, blood pressure 140/68. She was alert and oriented with normal speech. She had 2/3 memory and did not give a coherent history. Cranial nerves II through XII are abnormal in the following ways: Upon upper prolonged gaze for 30 seconds, she developed right ptosis as well as dysconjugate gaze where her left eye deviated in. She could not abduct either eye on lateral gaze. Pupils were equal, round and reactive to light. Red reflex was present and the left disc was sharp, right disc was not well seen and she was not fully cooperative. Motor exam revealed 5/5 strength in both arms, initially within 7 (repetitive biceps). It was 4-/5 strength likewise with triceps and deltoids. She had 5/5 strength in her legs on direct testing. Reflexes were trace to 1. Toes were downgoing. Chest: Clear. Cardiovascular: Regular rate and rhythm. Abdomen is soft with positive bowel sounds. DIAGNOSTIC STUDIES/LAB DATA: Her MRI scan from her recent ER visit was reviewed and showed diffuse atrophy and white matter disease, but no acute stroke or other findings. Her labs have white count of 11.3. Rest of the CBC was normal. Had normal CMP other than a glucose of 154, hemoglobin A1c 6.3. C- reactive protein was 7.87. LDL was 66. TSH was 2.78. UA has 1+ blood, leuk esterase negative. Toxicology was cancelled. IMPRESSION AND PLAN: I discussed with the patient and Dr. Domingo that given her double vision, lateral abduction in both eyes as well as some dysconjugate gaze in her left eye when she looked up as well as a fatigable ptosis and a fatigable weakness, I think she has a myasthenic syndrome, either myasthenia gravis or Lambert-Eaton syndrome. She had a recent chest x-ray when she was in the ER, which showed no active cardiopulmonary disease. I will be obtaining an EMG nerve conduction in the near future and we have sent off acetylcholine receptor and MuSK antibodies. She has no shortness of breath or difficulty swallowing. If this is myasthenia, she is not in crisis now. Hopefully, over the next day or 2, we will be able to confirm a diagnosis. At that point, she may need further studies such as CT of her thymus and then we would institute therapy possibly for both symptomatic relief as well as immunosuppression depending on what exactly she turns out to have. Thank you for sharing her case. [id number]/[facility] #: [id number] ARMEN
[2017-08-22] MEDS: Omeprazole CAP* 20 MG PO SCH (05:16)
[2017-08-22] MEDS: Heparin VIAL(*) 5000 UNITS/ML VIAL (FIVE THOUSAND) SUBCUT SCH ×3 (05:17→21:04)
[2017-08-22] MEDS: Donepezil TAB* 5 MG PO SCH (07:52)
[2017-08-22] MEDS: CMC:Escitalopram (NF) 10 MG TAB PO SCH (07:53)
[2017-08-22] MEDS: Sulfamethox/Trimethoprim DS 800/160* TAB PO SCH ×2 (07:53→21:04)
[2017-08-22] MEDS: Atorvastatin* 10 MG TAB PO SCH (07:53)
--- NOTE | 2017-08-22 15:09 | PN ---
Subjective Date of Service: 08/22/17 Interval History: Patient fells weak all over. She attributes this to being in bed too much. She does not remember me from yesterday. Family History: Unchanged from Admission Social History: Unchanged from Admission Past Medical History: Unchanged from Admission Objective Active Medications: Atorvastatin Calcium (Lipitor*) 10 mg PO DAILY [facility] Last Admin: 08/22/17 07:53 Dose: 10 mg Donepezil HCl (Aricept Tab*) 5 mg PO DAILY [facility] Last Admin: 08/22/17 07:52 Dose: 5 mg Escitalopram Oxalate (Lexapro (Nf)) 10 mg PO DAILY [facility] Last Admin: 08/22/17 07:53 Dose: 10 mg Heparin Sodium (Porcine) (Heparin Vial(*)) 5,000 units SUBCUT Q8HR [facility] Last Admin: 08/22/17 13:42 Dose: 5,000 units Omeprazole (Prilosec Cap*) 20 mg PO DAILY@0600 [facility] Last Admin: 08/22/17 05:16 Dose: 20 mg Ondansetron HCl (Zofran Inj*) 4 mg IV Q6H PRN PRN Reason: NAUSEA Trimethoprim/Sulfamethoxazole (Bactrim Ds 800/160 Tab*) 1 tab PO BID [facility] Last Admin: 08/22/17 07:53 Dose: 1 tab Vital Signs 08/21/17 08/22/17 08/22/17 23:36 03:36 07:49 Temperature 36.7 C 36.8 C 36.7 C Pulse Rate 87 84 78 Respiratory 16 16 14 Rate Blood Pressure 150/52 158/62 136/54 (mmHg) O2 Sat by Pulse 97 93 95 Oximetry 08/22/17 08/22/17 07:58 12:14 Temperature 36.6 C Pulse Rate 82 Respiratory 16 18 Rate Blood Pressure 136/68 (mmHg) O2 Sat by Pulse 99 Oximetry Oxygen Devices in Use Now: None Appearance: no distress Eyes: No Scleral Icterus Ears/Nose/Mouth/Throat: Clear Oropharnyx Neck: NL Appearance and Movements; NL JVP Respiratory: Clear to Auscultation Cardiovascular: NL Sounds; No Murmurs; No JVD, RRR Abdominal: NL Sounds; No Tenderness; No Distention, No Hepatosplenomegaly Neurological: Alert and Oriented x 3, - - eyes w/ bilateral defect in abduction , motor 4+/5 UE, diminishes to 4/5 w/ repeat testing Lines/Tubes/Other Access: Clean, Dry and Intact Peripheral IV Result Diagrams: 08/20/17 11:05 08/19/17 12:42 Additional Lab and Data: Laboratory Tests 08/19/17 08/21/17 08/21/17 12:42 14:43 14:43 ESR 42 H Total Creatine Kinase 208 TSH 2.78 Microbiology and Other Data: Group B strep on urine culture Diagnostic Imaging: Nerve conduction testing pending from today Assess/Plan/Problems-Billing Assessment: 89 year old woman admitted w/ progressive weakness, one fall, over a week, with negative MRI in ER 08/17 - Patient Problems (1) Myasthenia gravis Current Visit: Yes Status: Acute Priority: High Code(s): G70.00 - MYASTHENIA GRAVIS WITHOUT (ACUTE) EXACERBATION SNOMED Code(s): 95411019 Comment: -progressive symmetric weakness concerning for MG or ELS. -appreciate input from Dr. Ferrari, awaiting MUSK and AChRecAb and results of nerve conduction testing -physical therapy to assess (2) UTI (urinary tract infection), bacterial Current Visit: Yes Status: Acute Priority: Medium Code(s): N39.0 - URINARY TRACT INFECTION, SITE NOT SPECIFIED; A49.9 - BACTERIAL INFECTION, UNSPECIFIED SNOMED Code(s): 747182194 Comment: -repeat lactate normal, no clinical sign of sepsis -WBCs and trend temps excellent - Continue bactrim for group B strep (3) DVT prophylaxis Current Visit: Yes Status: Acute Priority: Low Code(s): [id number] - SNOMED Code(s): 823649506 Comment: on SC heparin Status and Disposition: Needs continued hospital stay for neurological workup
[2017-08-22] MEDS: Pyridostigmine TAB* 60 MG PO SCH (17:00)
--- NOTE | 2017-08-23 00:04 | PN ---
NEUROLOGICAL FOLLOWUP NOTE: DATE OF SERVICE: 08/22/17 - ROOM #[id number] PATIENT OF: Dr. Domingo. HISTORY: She denies any shortness of breath or difficulty swallowing. She still has double vision and weakness. No new symptoms. MEDICATIONS: Remain unchanged includin. Lipitor. 2. Aricept. 3. Lexapro. 4. Prilosec. 5. Bactrim. PHYSICAL EXAMINATION: Temperature 97.9, pulse 82, respirations 18, blood pressure 136/68. She is alert and oriented with normal speech and comprehension. Cranial nerves II through XII were normal other than her extraocular movements, which remain abnormal for bilateral esotropia with disconjugate gaze of her left eye going down upon prolonged upper gaze or ptosis on upper gazes today was present on the left eye as well as the right. She also had fatigable muscle weakness again in her arms. Sed rate was 42, CPK was 208. Other serologies for myasthenia are pending. She had an EMG nerve conduction study today, which showed some evidence of a diffuse neuropathy. She did not tolerate repetitive stim well and we will be doing further testing tomorrow. I discussed with her and her family that she clinically appears to have a myasthenic syndrome. We are gong to begin Mestinon and we will double check with the pharmacy and we will eliminate any of her medicines that could complicate the myasthenic syndrome. We will be repeating the nerve conduction study as tolerated but just repetitive stim because she was in distress as the test proceeded. Thank you for sharing her case. [id number]/[facility] #: [id number] ARMEN
[2017-08-23] MEDS: Pyridostigmine TAB* 60 MG PO SCH ×4 (00:28→23:50)
[2017-08-23] MEDS: CMCS Melatonin (NF) 3 MG TAB PO PRN (02:13)
[2017-08-23] MEDS: Omeprazole CAP* 20 MG PO SCH (05:10)
[2017-08-23] MEDS: Heparin VIAL(*) 5000 UNITS/ML VIAL (FIVE THOUSAND) SUBCUT SCH ×3 (05:10→21:06)
[2017-08-23] MEDS: Atorvastatin* 10 MG TAB PO SCH (07:48)
[2017-08-23] MEDS: Sulfamethox/Trimethoprim DS 800/160* TAB PO SCH ×2 (07:48→21:05)
[2017-08-23] MEDS: CMC:Escitalopram (NF) 10 MG TAB PO SCH (07:48)
--- NOTE | 2017-08-23 13:51 | PN ---
Subjective Date of Service: 08/23/17 Interval History: Patient seen and examined at bedside. Denies fever, chills, shortness of breath , chest discomfort, N/V/D. Pt reports tingling in bilateral hands. Family History: Unchanged from Admission Social History: Unchanged from Admission Past Medical History: Unchanged from Admission Objective Active Medications: Atorvastatin Calcium (Lipitor*) 10 mg PO DAILY [facility] Escitalopram Oxalate (Lexapro (Nf)) 10 mg PO DAILY [facility] Heparin Sodium (Porcine) (Heparin Vial(*)) 5,000 units SUBCUT Q8HR [facility] Melatonin (Melatonin (Nf)) 3 mg PO BEDTIME PRN; Protocol Reason: Sleep Omeprazole (Prilosec Cap*) 20 mg PO DAILY@0600 [facility] Ondansetron HCl (Zofran Inj*) 4 mg IV Q6H PRN Reason: NAUSEA Pyridostigmine [place] (Mestinon Tab*) 60 mg PO Q8H [facility] Trimethoprim/Sulfamethoxazole (Bactrim Ds 800/160 Tab*) 1 tab PO BID [facility] Vital Signs 08/22/17 08/22/17 08/22/17 16:20 16:33 19:16 Temperature 98.2 F 98.5 F Pulse Rate 77 73 Respiratory 18 20 Rate Blood Pressure 128/43 134/50 (mmHg) O2 Sat by Pulse 97 96 Oximetry 08/22/17 08/22/17 08/23/17 20:00 23:42 02:28 Temperature 98.0 F 98.4 F Pulse Rate 80 74 Respiratory 20 16 16 Rate Blood Pressure 137/51 117/42 (mmHg) O2 Sat by Pulse 94 97 Oximetry 08/23/17 08/23/17 07:54 08:00 Temperature 98.9 F Pulse Rate 78 Respiratory 18 18 Rate Blood Pressure 122/67 (mmHg) O2 Sat by Pulse 97 Oximetry Oxygen Devices in Use Now: None Appearance: NAD, sitting up in bed Respiratory: Symmetrical Chest Expansion and Respiratory Effort, Clear to Auscultation Cardiovascular: NL Sounds; No Murmurs; No JVD, RRR Abdominal: NL Sounds; No Tenderness; No Distention Extremities: No Edema Skin: No Rash or Ulcers Neurological: Alert and Oriented x 3, NL Muscle Strength and Tone, - - Hand solar electric practitioner equal, yue and plantar flex equal, smile symmetric. Lines/Tubes/Other Access: Clean, Dry and Intact Peripheral IV - site benign Nutrition: Taking PO's Result Diagrams: 08/20/17 11:05 08/19/17 12:42 Additional Lab and Data: Laboratory Tests 08/19/17 08/21/17 08/21/17 12:42 14:43 14:43 ESR 42 H Total Creatine Kinase 208 TSH 2.78 Microbiology and Other Data: Urine culture - Group B strep Diagnostic Imaging: Nerve conduction testing pending EKG Data: RSR, no ectopy Assess/Plan/Problems-Billing Assessment: Ms. Cabrera is an 89 year old woman with PMH significant for depression, HLD, dementia and Dm who was admitted w/ progressive weakness, one fall, over a week , with negative MRI in ER 08/17 - Patient Problems (1) Myasthenia gravis Code(s): G70.00 - MYASTHENIA GRAVIS WITHOUT (ACUTE) EXACERBATION SNOMED Code(s ): 03606767 Comment: - Progressive symmetric weakness concerning for MG or ELS. - Appreciate input Neurology, awaiting MUSK and AChRecAb and results of nerve conduction testing - Continue physical therapy (2) UTI (urinary tract infection), bacterial Code(s): N39.0 - URINARY TRACT INFECTION, SITE NOT SPECIFIED; A49.9 - BACTERIAL INFECTION, UNSPECIFIED SNOMED Code(s): 741233855 Comment: - Repeat lactate normal, no clinical sign of sepsis - Leukocytosis improving, afebrile - Continue bactrim for group B strep (3) Dementia Code(s): F03.90 - UNSPECIFIED DEMENTIA WITHOUT BEHAVIORAL DISTURBANCE SNOMED Code(s): 70766779 Comment: - Continue donepezil (4) Depression Code(s): F32.9 - MAJOR DEPRESSIVE DISORDER, SINGLE EPISODE, UNSPECIFIED SNOMED Code(s): 78305954 Comment: - Continue lexapro (5) DVT prophylaxis Code(s): [id number] - SNOMED Code(s): 408075173 Comment: - SC heparin (6) Full code status Code(s): Z78.9 - OTHER SPECIFIED HEALTH STATUS SNOMED Code(s): 814204738 Status and Disposition: Inpatient. Needs continued hospital stay for neurological workup. Discharge when medically stable, plan for [facility] vs SNF.
[2017-08-23] MEDS: predniSONE TAB* 10 MG PO SCH (18:11)
[2017-08-24] MEDS: CMCS Melatonin (NF) 3 MG TAB PO PRN ×2 (02:20→22:38)
[2017-08-24 06:03] LABS: Hematocrit 34 % (35-47); Hemoglobin 11.8 g/dl (12.0-16.0); Mean Corpuscular HGB Conc 34 g/dl (31-36); Mean Corpuscular Hemoglobin 31 pg (27-31); Mean Corpuscular Volume 90 fL (80-97); Mean Platelet Volume 8 um3 (7.4-10.4); Red Blood Count 3.85 10^6/ul (4.0-5.4); Red Cell Distribution Width 14 % (10.5-15); White Blood Count 7.1 10^3/ul (3.5-10.8)
[2017-08-24] MEDS: Heparin VIAL(*) 5000 UNITS/ML VIAL (FIVE THOUSAND) SUBCUT SCH ×3 (06:15→21:12)
[2017-08-24] MEDS: Omeprazole CAP* 20 MG PO SCH (06:15)
[2017-08-24] MEDS: predniSONE TAB* 10 MG PO SCH (08:10)
[2017-08-24] MEDS: Atorvastatin* 10 MG TAB PO SCH (08:11)
[2017-08-24] MEDS: Sulfamethox/Trimethoprim DS 800/160* TAB PO SCH (08:11)
[2017-08-24] MEDS: Pyridostigmine TAB* 60 MG PO SCH ×3 (08:11→22:39)
[2017-08-24] MEDS: CMC:Escitalopram (NF) 10 MG TAB PO SCH (08:11)
--- NOTE | 2017-08-24 10:09 | PN ---
Subjective Date of Service: 08/24/17 Interval History: Patient seen and examined at bedside. Denies fever, chills, shortness of breath , chest discomfort, N/V/D. Pt states that she has been able to walk to the bathroom and get up to a chair and she is feeling much better day. She continues to have bilateral hand tingling. Per [facility] staff, Pt continues to be weak and unsteady when she is ambulating. Family History: Unchanged from Admission Social History: Unchanged from Admission Past Medical History: Unchanged from Admission Objective Active Medications: Atorvastatin Calcium (Lipitor*) 10 mg PO DAILY [facility] Escitalopram Oxalate (Lexapro (Nf)) 10 mg PO DAILY [facility] Heparin Sodium (Porcine) (Heparin Vial(*)) 5,000 units SUBCUT Q8HR [facility] Melatonin (Melatonin (Nf)) 3 mg PO BEDTIME PRN; Protocol Reason: Sleep Omeprazole (Prilosec Cap*) 20 mg PO DAILY@0600 [facility] Ondansetron HCl (Zofran Inj*) 4 mg IV Q6H PRN Reason: NAUSEA Prednisone (Deltasone Tab*) 30 mg PO DAILY WITH MEAL [facility] Pyridostigmine [place] (Mestinon Tab*) 60 mg PO Q8H [facility] Trimethoprim/Sulfamethoxazole (Bactrim Ds 800/160 Tab*) 1 tab PO BID [facility] Vital Signs 08/23/17 08/23/17 08/23/17 15:27 19:14 19:43 Temperature 97.9 F 97.6 F Pulse Rate 69 85 Respiratory 16 16 16 Rate Blood Pressure 126/46 118/39 (mmHg) O2 Sat by Pulse 95 96 Oximetry 08/23/17 08/24/17 08/24/17 23:17 04:10 07:23 Temperature 98.2 F 97.9 F 98.2 F Pulse Rate 89 89 88 Respiratory 18 16 16 Rate Blood Pressure 120/77 127/49 126/47 (mmHg) O2 Sat by Pulse 98 95 95 Oximetry Oxygen Devices in Use Now: None Appearance: NAD, laying in bed Respiratory: Symmetrical Chest Expansion and Respiratory Effort, Clear to Auscultation Cardiovascular: NL Sounds; No Murmurs; No JVD, RRR Abdominal: NL Sounds; No Tenderness; No Distention Extremities: No Edema Skin: No Rash or Ulcers Neurological: Alert and Oriented x 3, NL Muscle Strength and Tone Lines/Tubes/Other Access: Clean, Dry and Intact Peripheral IV - site benign Nutrition: Taking PO's Result Diagrams: 08/24/17 05:25 08/19/17 12:42 Additional Lab and Data: Laboratory Tests 08/19/17 08/21/17 08/21/17 12:42 14:43 14:43 ESR 42 H Total Creatine Kinase 208 TSH 2.78 Microbiology and Other Data: Urine culture - Group B strep Diagnostic Imaging: Nerve conduction testing pending EKG Data: RSR, no ectopy Assess/Plan/Problems-Billing Assessment: Ms. Cabrera is an 89 year old woman with PMH significant for depression, HLD, dementia and Dm who was admitted w/ progressive weakness, one fall, over a week , with negative MRI in ER 08/17 - Patient Problems (1) Myasthenia gravis Code(s): G70.00 - MYASTHENIA GRAVIS WITHOUT (ACUTE) EXACERBATION SNOMED Code(s ): 40236963 Comment: - Progressive symmetric weakness - Appreciate input Neurology, awaiting MUSK and AChRecAb and results of nerve conduction testing - Continue physical therapy - Started Prednisone 30mg daily yesterday (2) UTI (urinary tract infection), bacterial Code(s): N39.0 - URINARY TRACT INFECTION, SITE NOT SPECIFIED; A49.9 - BACTERIAL INFECTION, UNSPECIFIED SNOMED Code(s): 386951517 Comment: - Repeat lactate normal, no clinical sign of sepsis - Leukocytosis resolved, afebrile - Completed course of bactrim for group B strep (3) Dementia Code(s): F03.90 - UNSPECIFIED DEMENTIA WITHOUT BEHAVIORAL DISTURBANCE SNOMED Code(s): 61893734 Comment: - Continue donepezil (4) Depression Code(s): F32.9 - MAJOR DEPRESSIVE DISORDER, SINGLE EPISODE, UNSPECIFIED SNOMED Code(s): 28647711 Comment: - Continue lexapro (5) DVT prophylaxis Code(s): YKR5649 - SNOMED Code(s): 106827287 Comment: - SC heparin (6) Full code status Code(s): Z78.9 - OTHER SPECIFIED HEALTH STATUS SNOMED Code(s): 990863760 Status and Disposition: Inpatient. Needs continued hospital stay for treatment of MG. Discharge when medically stable, plan for [facility] vs SNF.
[2017-08-24 18:37] LABS: BUN/Creatinine Ratio 20.6 (8-20); EGFR African American 49.2 (>60); EGFR Non-African American 38.2 (>60); Potassium 4.4 mmol/L (3.5-5.0)
[2017-08-24] MEDS ORDERED: Iodixanol* (CONTRAST) 320 MG/ML 100 ML SDV IV ONE (19:39)
--- NOTE | 2017-08-24 20:40 | RAD ---
INDICATION: Evaluate for thymoma COMPARISON: Chest x-ray August 17, 2017 TECHNIQUE: Axial source images were obtained from the thoracic inlet to the hemidiaphragms. Coronal and sagittal reconstructed images were acquired. 80 mL Visipaque 320 The visualized neck to include the thyroid appear normal. Chest wall: There are no acute abnormalities of the bony thorax or chest wall. There is no supraclavicular, infraclavicular, or axillary lymphadenopathy. Lungs : There are small areas of peripheral infiltrative change in both lung ibrahim. These could be acute or chronic. Suggest noncontrast CT imaging follow-up in 2-3 months.. There are minor emphysematous changes.. There are no endobronchial lesions. Cardiomediastinal structures: The heart is normal in size. There is no pericardial effusion. There is no evidence of aortic aneurysm or dissection. The pulmonary vessels appear normal. There is no mediastinal or hilar adenopathy. There is no anterior mediastinal mass. The esophagus appears normal. Pleura : There are no pleural-based masses or effusions. Other: Limited views of the abdomen show a large hiatal hernia. There is fatty replacement of the pancreas.. IMPRESSION: NO EVIDENCE OF AN ANTERIOR MEDIASTINAL MASS. SMALL PERIPHERAL INFILTRATES IN BOTH LUNG IBRAHIM. SUGGEST SHORT-TERM NONCONTRAST IMAGING FOLLOW-UP OUTLINED ABOVE.
[2017-08-24] MEDS: NS 0.9% 1000 ML* 1,000 ML IV SCH (21:11)
--- NOTE | 2017-08-25 02:51 | PN ---
CC: Dr. Michelle Lilly * PROGRESS NOTE: DATE OF SERVICE / DICTATION: 08/24/17 PATIENT OF: Ms. Child. HISTORY: I saw Ivy yesterday and today did an abbreviated repetitive stim, which she tolerated with some difficulty. Findings were suggestive of myasthenia and I began prednisone yesterday. She has no shortness of breath, fever, chills, and this morning, she has been able to walk to the bathroom get up to the chair and feels much better and much stronger overall. She continues to have some bilateral hand tingling. She was somewhat weak and unsteady when ambulating, but this represents much better change. PAST MEDICAL HISTORY: Unchanged. FAMILY HISTORY: Unchanged. SOCIAL HISTORY: Unchanged. MEDICATIONS: Her medications include: 1. Mestinon 60 mg q.8 hours. 2. Prednisone 30 mg daily. 3. Lexapro. 4. Lipitor. 5. Bactrim. I checked with the pharmacy yesterday to make sure that there was none of her meds is contraindicated in somebody who has myasthenia. PHYSICAL EXAMINATION: On exam today, temperature 98.2, pulse 88, respirations 18, blood pressure 126/47. She is alert and oriented with normal speech and comprehension. Cranial nerves II through XII were normal other than she had persistent estropia, though could look laterally to the right with more range extraocular movements than before, but it is still limited. She did not have ptosis on upper gaze at all initially. After 30 seconds, there was some slight ptosis in the right eye, but improved. Repetitive biceps, strength decreased, but much less than previously. Reflexes were 1 and equal. Chest: Clear. Cardiovascular: Regular rate and rhythm. Abdomen: Soft with positive bowel sounds. DIAGNOSTIC STUDIES: Acetylcholine receptor antibodies are pending. CBC had a hematocrit of 34, sed rate has been 42. I think most likely Ivy has myasthenia gravis. I have discussed this with her. We are waiting for antibodies, but she can be sent home in the next day or 2. DISPOSITION: Disposition will be either to family member if she is stronger than she is today, otherwise, she will need to go a nursing rehab. She will need to in the future slowly decrease steroids, and if she remains on steroids, we have to make a decision of whether to switch over to an immunosuppressive agents. She is going to continue the Mestinon and will check a CT scan of her thymus today. Thank you for sharing her case. [id number]/[facility] #: [id number] ARMEN
[2017-08-25] MEDS: NS 0.9% 1000 ML* 1,000 ML IV SCH ×2 (06:13→17:44)
[2017-08-25] MEDS: Heparin VIAL(*) 5000 UNITS/ML VIAL (FIVE THOUSAND) SUBCUT SCH ×3 (06:15→21:01)
[2017-08-25] MEDS: Omeprazole CAP* 20 MG PO SCH (06:16)
[2017-08-25 06:46] LABS: BUN/Creatinine Ratio 22.5 (8-20); Calcium 8.8 mg/dL (8.6-10.3); EGFR African American 59.5 (>60); EGFR Non-African American 46.3 (>60)
[2017-08-25] MEDS: CMC:Escitalopram (NF) 10 MG TAB PO SCH (08:51)
[2017-08-25] MEDS: predniSONE TAB* 20 MG PO SCH (08:51)
[2017-08-25] MEDS: Pyridostigmine TAB* 60 MG PO SCH ×2 (08:51→16:39)
[2017-08-25] MEDS: Atorvastatin* 10 MG TAB PO SCH (08:51)
--- NOTE | 2017-08-25 09:29 | PN ---
PROGRESS NOTE: DATE OF SERVICE: 08/24/17 HISTORY: This is a dictation of seeing the patient yesterday. She continues to have significant weakness and difficulty getting out of bed. She has ptosis and double vision. The Mestinon is not really helping her at this point. Her other medications are unchanged. Vital Signs: Temperature 97.6, pulse 85, respirations 16, blood pressure 118/ 39. She was alert and oriented. She has ptosis on upward gaze, but became more pronounced after upward gaze for 30 seconds. She had bilateral esotropia. She had rapidly fatiguing weakness in her extremities. I did a repetitive stim test today, which was limited due to patient's cooperation and pain, but was compatible with the diagnosis of myasthenia most likely, and I have spoken to the hospitalist and we are beginning relatively low dose of steroids. They have checked her other medicines. There is no contraindication to them for somebody who has myasthenia. [id number]/[facility] #: [id number] MTDD
--- NOTE | 2017-08-25 15:40 | PN ---
Subjective Date of Service: 08/25/17 Interval History: This is an 89 yo female with mild dementia and depression who presented with c/ o weakness. She was found to have a UTI, but exam c/w new diagnosis of myasthenia gravis. She has been seen by neurology and started on pyridostigmine with little improvement. Prednisone started yesterday. Patient reports that her strength is improving somewhat. She denies c/o cough, SOB, abd pain, n/v. Still has some double vision. Objective Active Medications: Atorvastatin Calcium (Lipitor*) 10 mg PO DAILY [facility] Last Admin: 08/25/17 08:51 Dose: 10 mg Escitalopram Oxalate (Lexapro (Nf)) 10 mg PO DAILY [facility] Last Admin: 08/25/17 08:51 Dose: 10 mg Heparin Sodium (Porcine) (Heparin Vial(*)) 5,000 units SUBCUT Q8HR [facility] Last Admin: 08/25/17 14:49 Dose: 5,000 units Sodium Chloride (Ns 0.9% 1000 Ml*) 1,000 mls @ 100 mls/hr IV PER RATE [facility] Last Admin: 08/25/17 06:13 Dose: 100 mls/hr Melatonin (Melatonin (Nf)) 3 mg PO BEDTIME PRN; Protocol PRN Reason: Sleep Last Admin: 08/24/17 22:38 Dose: 3 mg Omeprazole (Prilosec Cap*) 20 mg PO DAILY@0600 [facility] Last Admin: 08/25/17 06:16 Dose: 20 mg Ondansetron HCl (Zofran Inj*) 4 mg IV Q6H PRN PRN Reason: NAUSEA Prednisone (Deltasone Tab*) 20 mg PO DAILY WITH MEAL [facility] Last Admin: 08/25/17 08:51 Dose: 20 mg Pyridostigmine [place] (Mestinon Tab*) 60 mg PO Q8H [facility] Last Admin: 08/25/17 08:51 Dose: 60 mg Vital Signs: Temp Pulse Resp BP Pulse Ox 98.0 F 70 16 125/43 97 08/25/17 14:25 08/25/17 14:25 08/25/17 14:25 08/25/17 14:25 08/25/17 14:25 Oxygen Devices in Use Now: None Appearance: Well appearing elderly female in NAD Respiratory: Symmetrical Chest Expansion and Respiratory Effort, Clear to Auscultation Cardiovascular: NL Sounds; No Murmurs; No JVD, RRR Abdominal: NL Sounds; No Tenderness; No Distention Extremities: No Edema Skin: No Rash or Ulcers Neurological: Alert and Oriented x 3, NL Muscle Strength and Tone Result Diagrams: 08/24/17 05:25 08/25/17 06:03 Additional Lab and Data: Laboratory Tests 08/19/17 08/21/17 08/21/17 12:42 14:43 14:43 ESR 42 H Total Creatine Kinase 208 TSH 2.78 Microbiology and Other Data: Urine culture - Group B strep Diagnostic Imaging: Nerve conduction testing pending EKG Data: RSR, no ectopy Assess/Plan/Problems-Billing Assessment: Ms. Cabrera is an 89 year old woman with PMH significant for depression, HLD, dementia and Dm who was admitted w/ progressive weakness, one fall, over a week , with negative MRI in ER 08/17 - Patient Problems (1) Myasthenia gravis Comment: Progressive symmetric weakness Appreciate input Neurology, awaiting MUSK and AChRecAb and results of nerve conduction testing Continue physical therapy Little initial response to pyridostigmine Started Prednisone (2) UTI (urinary tract infection), bacterial Comment: No associated sepsis Leukocytosis resolved, afebrile Completed 5d of Bactrim (3) Dementia Comment: Continue donepezil (4) Depression Comment: Continue lexapro (5) DVT prophylaxis Comment: SC heparin (6) Full code status Status and Disposition: Inpatient. Anticipate dc to [facility] in 1-2d
--- NOTE | 2017-08-25 18:12 | PN ---
Progress Note - Progress Note Date of Service: 08/25/17 SOAP: Subjective: Ms. Cabrera is a pleasant 89 yo female with a PMH of dementia and depression who presented to the ED complaining of generalized weakness. Patient' s urine was indicative of a UTI, and seems to better in that regard. Patient was found to have myasthenia gravis, and has been started on Prednisone as well as Pyridostigmine. Patient seems to be doing well and doesn't have any significant complaints. States she has been ambulating with help of PT and believes her strength is a bit better. Patient denies CP, SOB, cough, abdominal pain, N/V, LE edema. Objective: Vital Signs 08/24/17 08/24/17 08/24/17 19:45 21:22 23:22 Temperature 98.0 F 97.8 F Pulse Rate 83 76 Respiratory 18 16 16 Rate Blood Pressure 136/54 124/52 (mmHg) O2 Sat by Pulse 97 94 Oximetry 08/25/17 08/25/17 08/25/17 03:25 07:35 08:00 Temperature 98.1 F 98.1 F Pulse Rate 73 72 Respiratory 16 17 17 Rate Blood Pressure 130/52 132/51 (mmHg) O2 Sat by Pulse 94 94 Oximetry 08/25/17 08/25/17 08/25/17 11:08 11:35 14:25 Temperature 98.0 F 98.0 F Pulse Rate 61 66 70 Respiratory 14 16 Rate Blood Pressure 123/40 111/44 125/43 (mmHg) O2 Sat by Pulse 98 97 Oximetry 08/25/17 16:18 Temperature 98.2 F Pulse Rate 69 Respiratory 18 Rate Blood Pressure 136/50 (mmHg) O2 Sat by Pulse 96 Oximetry Active Medications Atorvastatin Calcium (Lipitor*) 10 mg PO DAILY [facility] Last Admin: 08/25/17 08:51 Dose: 10 mg Escitalopram Oxalate (Lexapro (Nf)) 10 mg PO DAILY [facility] Last Admin: 08/25/17 08:51 Dose: 10 mg Heparin Sodium (Porcine) (Heparin Vial(*)) 5,000 units SUBCUT Q8HR [facility] Last Admin: 08/25/17 14:49 Dose: 5,000 units Sodium Chloride (Ns 0.9% 1000 Ml*) 1,000 mls @ 100 mls/hr IV PER RATE [facility] Last Admin: 08/25/17 17:44 Dose: 100 mls/hr Melatonin (Melatonin (Nf)) 3 mg PO BEDTIME PRN; Protocol PRN Reason: Sleep Last Admin: 08/24/17 22:38 Dose: 3 mg Omeprazole (Prilosec Cap*) 20 mg PO DAILY@0600 [facility] Last Admin: 08/25/17 06:16 Dose: 20 mg Ondansetron HCl (Zofran Inj*) 4 mg IV Q6H PRN PRN Reason: NAUSEA Prednisone (Deltasone Tab*) 20 mg PO DAILY WITH MEAL [facility] Last Admin: 08/25/17 08:51 Dose: 20 mg Pyridostigmine [place] (Mestinon Tab*) 60 mg PO Q8H [facility] Last Admin: 08/25/17 16:39 Dose: 60 mg Laboratory Results - last 24 hr 08/24/17 08/25/17 18:05 06:03 Sodium 131 L 135 Potassium 4.4 4.0 Chloride 100 L 105 Carbon Dioxide 23 26 Anion Gap 8 4 BUN 27 H 25 H Creatinine 1.31 H 1.11 H Est GFR ( Amer) 49.2 59.5 Est GFR (Non-Af Amer) 38.2 46.3 BUN/Creatinine Ratio 20.6 H 22.5 H Glucose 149 H 102 H Calcium 9.0 8.8 General: WDWN, A&O x3, NAD. CV: RRR w/o MRG Respiratory: CTA w/o RRW GI: Abdomen is soft, non-distended and non-tender to palpation. Extremities: W/o edema Neuro: 5/5 strength Assessment: Ms. Cabrera is an 89 yo female with a history of dementia and depression who has a new diagnosis of myasthenia gravis. [] Plan: 1. UTI: Bactrim therapy has been completed. Leukocytosis has resolved. No signs of sepsis. 2. Myasthenia gravis: Continue pyridostigmine and prednisone. Neuro consult. 3. Dementia: Continue donepezil 4. Depression: continue lexapro 5. DVT prophylaxis: SQ heparin
[2017-08-26] MEDS: Pyridostigmine TAB* 60 MG PO SCH ×2 (00:44→07:59)
[2017-08-26] MEDS: NS 0.9% 1000 ML* 1,000 ML IV SCH (05:25)
[2017-08-26] MEDS: Heparin VIAL(*) 5000 UNITS/ML VIAL (FIVE THOUSAND) SUBCUT SCH (05:25)
[2017-08-26] MEDS: Omeprazole CAP* 20 MG PO SCH (05:26)
--- NOTE | 2017-08-26 05:52 | PN ---
NEUROLOGICAL FOLLOWUP: DATE OF SERVICE: 08/25/17 PATIENT OF: Dr. Child. HISTORY: This is a neurological followup on this 89-year-old woman with diplopia and stable weakness. She continues to feel somewhat stronger. She says it is easier for her to get to the bathroom today than on prior days. She still has some double vision, but feels overall better. She was manic yesterday , but according to her family she less manic today. We have decreased her prednisone dose today. MEDICATIONS: The mediations are unchanged and include: 1. Lipitor 10 mg daily. 2. Lexapro 10 mg daily. 3. Melatonin 3 mg at bedtime. 4. Prilosec 20 mg daily. 5. Deltasone 20 mg daily. 6. Mestinon 60 t.i.d. FAMILY HISTORY: Unchanged. SOCIAL HISTORY: Unchanged. PHYSICAL EXAMINATION: Vital Signs: Temperature 98, pulse 70, respirations 16, blood pressure 125/43. She is alert and oriented with normal speech and comprehension. Cranial nerves II through XII were intact other than bilateral esotropia, less on the right eye laterally than it had been on prior days. She still has fatigable ptosis, but similar to yesterday, improved from days prior to that. Strength was initially 5/5 and was fatigable in her arms, but was less fatigued than previously, although still significant. Chest: Clear. Cardiovascular: Regular rate and rhythm. Abdomen: Soft, with positive bowel sounds. DIAGNOSTIC DATA: CT scan of her chest showed no thymoma. Her serological blood work screening for myasthenia is not back yet. IMPRESSION AND PLAN: Ivy is making some clinical improvement with her prednisone and we will continue for now. The plan would be for her to have, if she cannot go home , a brief rehab stay and then I will be following her up and adjusting her medicines as needed. Thank you for sharing her case. [id number]/[facility] #: [id number] ARMEN
[2017-08-26] MEDS: predniSONE TAB* 20 MG PO SCH (07:59)
[2017-08-26] MEDS: CMC:Escitalopram (NF) 10 MG TAB PO SCH (07:59)
[2017-08-26] MEDS: Atorvastatin* 10 MG TAB PO SCH (07:59)
--- NOTE | 2017-08-26 09:16 | PN ---
Progress Note - Progress Note Date of Service: 08/26/17 SOAP: Subjective: Ms. Cabrera is an 89 yo female with a history of dementia and depression who presented to the ED with c/o weakness on 08/19. Patient was found to have a UTI and completed a five-day regimen of bactrim. There is now a strong suspicion of myasthenia gravis, however, serologic lab studies are still pending. Patient has been placed on prednisone and pyridostigmine. Patient states she believes that her strength is improving and feels well. Ms. Cabrera denies all other symptoms, including diplopia. Objective: Vital Signs 08/25/17 08/25/17 08/25/17 11:08 11:35 14:25 Temperature 98.0 F 98.0 F Pulse Rate 61 66 70 Respiratory 14 16 Rate Blood Pressure 123/40 111/44 125/43 (mmHg) O2 Sat by Pulse 98 97 Oximetry 08/25/17 08/25/17 08/25/17 16:18 19:40 20:00 Temperature 98.2 F 98.7 F Pulse Rate 69 82 Respiratory 18 17 16 Rate Blood Pressure 136/50 144/56 (mmHg) O2 Sat by Pulse 96 97 Oximetry 08/25/17 08/26/17 08/26/17 23:44 04:16 07:39 Temperature 98.1 F 98.1 F 98.5 F Pulse Rate 81 80 70 Respiratory 16 16 18 Rate Blood Pressure 125/47 119/49 137/45 (mmHg) O2 Sat by Pulse 99 96 97 Oximetry 08/26/17 08:00 Temperature Pulse Rate Respiratory 18 Rate Blood Pressure (mmHg) O2 Sat by Pulse Oximetry Active Medications Atorvastatin Calcium (Lipitor*) 10 mg PO DAILY [facility] Last Admin: 08/26/17 07:59 Dose: 10 mg Escitalopram Oxalate (Lexapro (Nf)) 10 mg PO DAILY [facility] Last Admin: 08/26/17 07:59 Dose: 10 mg Heparin Sodium (Porcine) (Heparin Vial(*)) 5,000 units SUBCUT Q8HR [facility] Last Admin: 08/26/17 05:25 Dose: 5,000 units Melatonin (Melatonin (Nf)) 3 mg PO BEDTIME PRN; Protocol PRN Reason: Sleep Last Admin: 08/24/17 22:38 Dose: 3 mg Omeprazole (Prilosec Cap*) 20 mg PO DAILY@0600 [facility] Last Admin: 08/26/17 05:26 Dose: 20 mg Ondansetron HCl (Zofran Inj*) 4 mg IV Q6H PRN PRN Reason: NAUSEA Prednisone (Deltasone Tab*) 20 mg PO DAILY WITH MEAL [facility] Last Admin: 08/26/17 07:59 Dose: 20 mg Pyridostigmine [place] (Mestinon Tab*) 60 mg PO Q8H [facility] Last Admin: 08/26/17 07:59 Dose: 60 mg General: WDWN 89 yo female in NAD HEENT: Mucous membranes are pink and moist. CV: RRR w/o MRG Respiratory: CTA w/o RRW BL GI: Abdomen is soft, non-distended and non-tender to palpation. Neuro: A&O x3, strength is 5/5, but is very fatiguable. EOMI. Assessment: Ms. Cabrera is an 89 yo female with a history of dementia and depression and has been admitted for c/o weakness. Pt. was admitted and treated for a UTI and now, myasthenia gravis. Plan: 1. Myasthenia Gravis: Continue prednisone and pyridostigmine--neuro will follow and manage medications. Discharge to rehabilitation facility to improve strength. 2. UTI: No signs of sepsis and bactrim regimen has been completed. Patient denies any urinary symptoms. 3. Dementia: Continue donepezil 4. Depression: Continue lexapro 5. DVT prophylaxis: SQ heparin
--- NOTE | 2017-08-26 11:04 | DS ---
CC: Dr. Lilly; Dr. Ferrari * DISCHARGE SUMMARY: DATE OF ADMISSION: 08/19/17. DATE OF DISCHARGE: 08/26/17. PRIMARY CARE PROVIDER: Dr. Michelle Lilly. CONSULTING NEUROLOGIST: Dr. Ferrari. DISCHARGING PROVIDER: BRIAN Angulo SUPERVISING PHYSICIAN: Dr. Damien Hernandez * (DICTATED BY BRIAN ANGULO) PRIMARY DISCHARGE DIAGNOSES: 1. Suspected myasthenia gravis with antibody studies still pending at the time of discharge as is a formal EMG and nerve conduction studies, but repetitive stim testing is suggestive of the diagnosis. 2. Urinary tract infection - completed 5 days of Bactrim. SECONDARY DISCHARGE DIAGNOSES: 1. Dementia - this is mild. 2. Depression - this did not complicate her hospitalization. DISCHARGE MEDICATIONS: 1. Atorvastatin 10 mg p.o. daily. 2. Donepezil 5 mg p.o. daily. 3. Lexapro 10 mg p.o. daily. 4. Prednisone 20 mg p.o. daily. 5. Pyridostigmine 60 mg p.o. q. 8 hours. MEDICATION CHANGES: 1. Prednisone as prescribed. 2. Pyridostigmine as prescribed. HOSPITAL IMAGING: CT of the chest shows no evidence of thymoma. There are small peripheral infiltrates in both lung lizama, consider followup CT. HOSPITAL COURSE: This is an 89-year-old female with fairly mild dementia as well as depression that had been living independently prior to her hospitalization who presented to the emergency department with complaints of weakness. She also provided a complaint of double vision and left arm numbness and tingling. Her initial labs are suggestive of a possible urinary tract infection. She was empirically treated with Bactrim for this. Her complaints and exam were suggestive of possible myasthenia gravis. Dr. Ferrari, neurologist was asked to consult. Antibody studies were collected and sent, but not resulted prior to her discharge. Dr. Ferrari did repetitive stim test that was suggestive of the possibility of myasthenia gravis. The patient was empirically started on pyridostigmine with little initial improvement in symptoms, and she was subsequently started on prednisone at an additional dose of 30 mg. The patient became slightly manic with her initial dose of prednisone and dose was decreased to 20 mg, which she seems to tolerate well. The patient showed some signs of improvement in her strength and complains of double vision during her hospitalization. As mentioned above, antibody studies and nerve conduction with EMG are pending at the time of discharge. DISPOSITION AND FOLLOWUP PLAN: The patient is being discharged to [facility] for subacute rehab. She will be discharged with 20 mg of prednisone daily and pyridostigmine as described above. Follow up with Dr. Ferrari has been established for 09/10/17 at which point, antibody studies should have returned to help clarify the diagnosis. TIME SPENT: Greater than 60 minutes was spent on this discharge. BRIAN ANGULO [id number]/[facility] #: [id number] ARMEN
[2017-08-26 11:54] VITALS: BP 114/41
[2017-08-27 12:30] LABS: Acetylcholine Recept Mod Ab 0 %
== END 2017-08-26 12:40 | DRG 57 ==
LOC: ED 11:52 → MED 13:36 → OBSVTOIN 08-20 11:35
PROVIDERS: ADMIT Internal Medicine; ATTEND Internal Medicine
DX: G70.00 Myasthenia gravis without (acute) exacerbation (principal); N17.9 Acute kidney failure, unspecified; E87.2 Acidosis; G62.9 Polyneuropathy, unspecified; E11.9 Type 2 diabetes mellitus without complications; B95.1 Streptococcus, group B, as the cause of diseases classified elsewhere; D72.829 Elevated white blood cell count, unspecified; E78.5 Hyperlipidemia, unspecified; N39.0 Urinary tract infection, site not specified; F30.9 Manic episode, unspecified; F03.90 Unspecified dementia, unspecified severity, without behavioral disturbance, psychotic disturbance, mood disturbance, and anxiety; F32.9 Major depressive disorder, single episode, unspecified; M81.0 Age-related osteoporosis without current pathological fracture; R41.3 Other amnesia; F41.0 Panic disorder [episodic paroxysmal anxiety]; R29.700 NIHSS score 0; R20.0 Anesthesia of skin; R20.2 Paresthesia of skin; R53.1 Weakness; H02.409 Unspecified ptosis of unspecified eyelid; H53.2 Diplopia; Z82.49 Family history of ischemic heart disease and other diseases of the circulatory system; Z88.0 Allergy status to penicillin; Z90.710 Acquired absence of both cervix and uterus; Z88.1 Allergy status to other antibiotic agents; Z79.52 Long term (current) use of systemic steroids
CPT/HCPCS: 36415; 70450; 70551; 71020; 71260; 80048; 80053; 80061; 81003; 81015; 82550; 83519; 83520; 83605; 83735; 84443; 84484; 85025; 85610; 85652; 85730; 86140; 87040; 87077; 87086; 93005; 95885; 95908; 95937; 99282; A9270-GY; G0378; J1644; J7512; Q9967